=== PATIENT | female | born 1955 | race Caucasian/White ===

== ENCOUNTER → 2018-03-15 | Outpatient (CLI) | payer MEDICARE, OTHER ==
--- NOTE | 2018-03-15 09:47 | RADIOLOGY IMAGING REPORT ---
FACILITY: [facility] PATIENT NAME: Karin Mijares : 1955 MR: [id number] V: [id number] EXAM DATE: ORDERING PHYSICIAN: JANET ANDRADE TECHNOLOGIST: Location: [facility] [place] Patient: Karin Mijares : 1955 Visit/Account:[id number] Date of Sevice: 03/15/2018 DEXA Scan Clinical history: Postmenopausal. Comparison: DEXA scan from 08/22/2013. LUMBAR SPINE: The bone mineral density (BMD) measured from L1-L4 correlates with a Z-score of -0.4 and a T-score of -2.3 which is osteopenia as defined by the World Health Organization. The corresponding risk of fra cture in the lumbar spine is 4-6 times increased compared with a young adult reference population. T his value has decreased by 7.6 % since the prior study. More than 5% change is considered significan t. HIP: Bone mineral density (BMD) measured in the LEFT total hip region correlates with a Z-score 0.4 and a T-score of -1.9 which is osteopenia as defined by the World Health Organization. The corresponding r isk of fracture in the hip is 3-4 times increased compared to a young adult reference population. Thi s value has decrease by 4.1 % since the prior study. More than 5% change is considered significant. T score left femoral neck -1.6 Bone mineral density (BMD) measured in the Femoral Neck region measures 0.812 g/cm?. IMPRESSION: 1. Lumbar spine: Osteopenia. There has been 7.6% decrease in the bone mineral density since the pre vious exam. 2. Left Total Hip: Osteopenia. There has been 4.1% decrease in the bone mineral density since the p revious exam. 3. Femoral Neck: Bone Mineral Density is 0.812 g/cm? The next DEXA scan of this patient should include the following sites: L1-L4 and the left hip. FRAX? WHO Fracture Risk Assessment Tool link: <http://www.shef.ac.uk/FRAX/tool.jsp?locationValue=9> PLEASE NOTE: 1) The World Health Organization defines low BMD as follows: T-score Normal > -1 Osteopenia < -1 and > -2.5 Osteoporosis < -2.5 without fractures Established osteoporosis < -2.5 with fractures 2) In general, you may wish to consider: Diagnosis Treatment Follow-up DEXA Normal BMD Prevention 2-3 years Osteopenia Prevention/therapy 1-2 years Osteoporosis Therapy Yearly 3) Fracture risk estimated from the T-score is more accurate for vertebral fractures (often spontane ous) than for hip fractures. Report Dictated By: Courtney Prasad MD at 03/15/2018 9:41 AM Report E-Signed By: Courtney Prasad MD at 03/15/2018 9:43 AM ANGELAN:[email or web address]
== END ==
LOC: RAD 01:18
PROVIDERS: ATTEND Physician Assistant
DX: Z13.820 Encounter for screening for osteoporosis (principal); M85.88 Other specified disorders of bone density and structure, other site
CPT/HCPCS: 77080